=== PATIENT | male | born 1990 | race Two or more races ===

== ENCOUNTER 2017-06-19 19:40 | Emergency (ER) | payer BC ==
--- NOTE | 2017-06-19 20:17 | UC ---
Cardiac HPI - HPI Summary HPI Summary: 26 year old male presents with mid sternal chest pain. - History of Current Complaint Chief Complaint: UCChestPain Stated Complaint: CHEST PAIN Time Seen by Provider: 06/19/17 19:54 Hx Obtained From: Patient Onset/Duration: Lasting Days Initial Severity: Moderate Current Severity: Moderate Chest Pain Location: Upper Sternal - Allergy/Home Medications Allergies/Adverse Reactions: Allergies Allergy/AdvReac Type Severity Reaction Status Date / Time No Known Allergies Allergy Verified 06/19/17 19:50 Home Medications: Home Medications NK [No Home Medications Reported] 06/19/17 [History Confirmed 06/19/17] PMH/Surg Hx/FS Hx/Imm Hx Previously Healthy: Yes - Social History Alcohol Use: None Substance Use Type: None Smoking Status (MU): Never Smoked Tobacco Review of Systems Constitutional: Negative Skin: Negative Eyes: Negative ENT: Negative Respiratory: Negative Cardiovascular: Chest Pain Gastrointestinal: Negative Genitourinary: Negative Motor: Negative Neurovascular: Negative Musculoskeletal: Negative Neurological: Negative Psychological: Negative All Other Systems Reviewed And Are Negative: Yes Physical Exam Triage Information Reviewed: Yes Vital Signs: Initial Vital Signs Temp 37.1 C 06/19/17 19:46 Pulse 79 06/19/17 19:46 Resp 14 06/19/17 19:46 BP 124/74 06/19/17 19:46 Pulse Ox 100 06/19/17 19:46 Vital Signs Reviewed: Yes Eye Exam: Normal ENT Exam: Normal Dental Exam: Normal Neck exam: Normal Neck: Positive: 1 Respiratory Exam: Normal Cardiovascular Exam: Normal Abdominal Exam: Normal Musculoskeletal Exam: Normal Neurological Exam: Normal Psychological Exam: Normal Skin Exam: Normal - Clinical Impression Provider Diagnoses: chest pain Discharge - Discharge Plan Condition: Stable Disposition: OTHER Discharge Disposition Comment: PATIENT SUGGESTED TO GO TO THE ER FOR CHEST PAIN Patient Education Materials: Chest Pain (ED) Referrals: No Primary Care Phys,NOPCP [Primary Care Provider] - Additional Instructions: PATIENT SUGGESTED TO GO TO THE ER CHEST PAIN.
== END 2017-06-19 20:20 ==
LOC: UCCORT 19:40
DX: R07.9 Chest pain, unspecified (principal)
CPT/HCPCS: 93005; 99201; G0463

== ENCOUNTER 2019-09-28 11:31 | Emergency (ER) | payer BC ==
[2019-09-28 12:43] VITALS: BP 122/85
[2019-09-28 12:56] LABS: Influenza B Molecular POSITIVE (Negative)
--- NOTE | 2019-09-28 12:59 | UC ---
Throat Pain/Nasal Enrique HPI - HPI Summary HPI Summary: 3 days of fever, sore throat, body aches and cough. At one pint had pink in his sputum. able to drink fluids and urinate normally. did get flu shot this yr. did not travel overseas but does travel for work. sick contact at work. - History of Current Complaint Chief Complaint: UCRespiratory Stated Complaint: ST,FEVER Time Seen by Provider: 09/28/19 12:36 Hx Obtained From: Patient Pain Intensity: 7 Pain Scale Used: 0-10 Numeric Cough: Sputum Appears - pink one time Associated Signs & Symptoms: Positive: Fever. Negative: Dysphagia, FB Sensation , Drooling, Wheezing, Vomiting, Rash - Allergies/Home Medications Allergies/Adverse Reactions: Allergies Allergy/AdvReac Type Severity Reaction Status Date / Time No Known Allergies Allergy Verified 09/28/19 12:31 Home Medications: Home Medications D-Methorphan/PE/Acetaminophen [Vicks Dayquil Cold & Flu 10-5-325 mg/15Ml] 1 liq PO PRN 09/28/19 [History] Dm/Acetaminophen/Doxylamine [Vicks Nyquil Cold & Flu N] 1 liq PO PRN 09/28/19 [ History] Ibuprofen TAB* [Advil TAB*] 200 mg PO Q6H PRN 09/28/19 [History Confirmed ] PMH/Surg Hx/FS Hx/Imm Hx Previously Healthy: Yes - Surgical History Surgical History: None - Family History Known Family History: Positive: Non-Contributory - Social History Alcohol Use: Rare Substance Use Type: None Smoking Status (MU): Never Smoked Tobacco Review of Systems All Other Systems Reviewed And Are Negative: Yes Constitutional: Positive: Fever ENT: Positive: Sore Throat Respiratory: Positive: Cough - w/ some hemoptysis one time; "streak of pink". Negative: Shortness Of Breath Gastrointestinal: Negative: Vomiting, Diarrhea Neurological: Negative: Headache Physical Exam Triage Information Reviewed: Yes Appearance: Well-Appearing Vital Signs: Initial Vital Signs Temp 99.1 F 09/28/19 12:34 Pulse 84 09/28/19 12:34 Resp 20 09/28/19 12:34 BP 122/85 09/28/19 12:34 Pulse Ox 100 09/28/19 12:34 Vital Signs Reviewed: Yes Eyes: Positive: Conjunctiva Clear ENT: Positive: Pharynx normal, TMs normal, Uvula midline. Negative: Muffled voice Neck: Positive: Supple, Nontender, No Lymphadenopathy Respiratory Exam: Normal Cardiovascular Exam: Normal Neurological: Positive: Alert Skin: Negative: Rashes Throat Pain/Nasal Course/Dx - Course Course Of Treatment: 3 days of viral illness and mainly complaining of sore throat. rapid strep neg and influenza positive today. did get flu shot this year. no outside [place] travel. exam was unremarkable. vitals good.recommended rest and increased hydration. - Differential Dx/Diagnosis Differential Diagnosis/HQI/PQRI: Influenza, Laryngitis, Pharyngitis, Other Provider Diagnosis: Influenza Discharge ED - Sign-Out/Discharge Documenting (check all that apply): Patient Departure All imaging exams completed and their final reports reviewed: No Studies - Discharge Plan Condition: Good Disposition: HOME Prescriptions: Oseltamivir CAP* [Tamiflu CAP*] 75 mg PO DAILY 5 Days #5 cap Patient Education Materials: Viral Syndrome (ED) Forms: *Work Release Referrals: No Primary Care Phys,NOPCP [Primary Care Provider] - Additional Instructions: If worsening please go to emergency room. - Billing Disposition and Condition Condition: GOOD Disposition: Home
== END 2019-09-28 13:24 | disposition home or self-care (01) ==
LOC: UCCORT 11:31
DX: J11.1 Influenza due to unidentified influenza virus with other respiratory manifestations (principal)
CPT/HCPCS: 87651; 99212; G0463